=== PATIENT | female | born 1985 | race Caucasian/White ===

== ENCOUNTER 2020-02-22 21:17 | Emergency (ER) | payer BC ==
[~2020-02-22] VITALS: Ht 162.6 cm; Wt 59.0 kg
[2020-02-22] MEDS ORDERED: DEXAMETHASONE SOD PHOSPHATE 10 MG/ML VIAL ONE (21:57)
[2020-02-22] MEDS ORDERED: diphenhydrAMINE HCL 50 MG/ML VIAL ONE (21:57)
[2020-02-22] MEDS ORDERED: PROCHLORPERAZINE EDISYLATE 10 MG/2 ML VIAL ONE (21:57)
[2020-02-22] MEDS ORDERED: DEXAMETHASONE SOD PHOSPHATE 10 MG/ML VIAL IV ONE (22:00)
[2020-02-22] MEDS ORDERED: PROCHLORPERAZINE EDISYLATE 10 MG/2 ML VIAL IVP ONE (22:00)
[2020-02-22] MEDS ORDERED: diphenhydrAMINE HCL 50 MG/ML VIAL IV ONE ×2 (22:00)
[2020-02-22] MEDS ORDERED: IV NS 0.9% 1,000 ML BAG IV ONE (22:00)
[2020-02-22] MEDS ORDERED: KETOROLAC TROMETHAMINE INJ 30 MG/ML VIAL ONE (22:10)
--- NOTE | 2020-02-22 22:22 | NUR ---
PT MEDICATED ORDERED
[2020-02-22] MEDS ORDERED: KETOROLAC TROMETHAMINE INJ 30 MG/ML VIAL IV ONE (22:30)
[2020-02-22 22:50] VITALS: BP 120/73
--- NOTE | 2020-02-22 23:09 | NUR ---
Patient discharged to home in stable condition. Written and verbal after care instructions given. Patient verbalizes understanding of instruction.pt. ambulatory with a steady gait
== END 2020-02-22 23:10 | disposition home or self-care (01) ==
LOC: ER 21:26
DX: R51.9 Headache, unspecified (principal); R11.0 Nausea; R00.0 Tachycardia, unspecified; Z20.828 Contact with and (suspected) exposure to other viral communicable diseases
CPT/HCPCS: 96361; 96374; 96375; 99284; C9803; J0780; J1100; J1200; J1885; J7030; U0003

== ENCOUNTER 2021-07-20 14:13 | Emergency (ER) | payer BC, OTHER ==
[~2021-07-20] VITALS: Ht 162.6 cm; Wt 59.9 kg
--- NOTE | 2021-07-20 14:20 | NUR ---
BIBS C/O CHEST PRESSURE, PALPIATION, HEADACHE SINCE WEDNESDAY. THE CHEST PRESSURE AND HEADACHE COMES AN GOES AND SOMETIMES LEFT AND RIGHT ARM TINGLES. 4/10 ON PAIN SCALE. PT HAS NO CARDIAC MEDICAL HISTORY. PT ATTACHED TO MONITOR. WARM BLANKET PROVIDED FOR [facility]. WILL CONTINUE TO MONITOR.
--- NOTE | 2021-07-20 14:25 | NUR ---
IV ESTABLISHED R AC 20G. LABS DRAWN AND SENT. CONVERTED TO SALINE LOCK.
[2021-07-20 15:02] LABS: BASOPHILS % (AUTO) 0.6 % (0.0-2.0); EOSINOPHILS % (AUTO) 0.4 % (0.0-6.0); HEMATOCRIT 42 % (33-45); HEMOGLOBIN 14.4 g/dL (11.5-14.8); LYMPHOCYTES # (AUTO) 1.4 K/uL (0.8-4.8); MEAN CORPUSCULAR HGB CONC 34 g/dl (31.0-36.0); MEAN CORPUSCULAR VOLUME 98 fL (82-100); MONOCYTES # (AUTO) 0.4 K/uL (0.1-1.30); MONOCYTES % (AUTO) 8.4 % (2.0-12.0); NEUTROPHILS # (AUTO) 3.2 K/uL (1.8-8.9); NEUTROPHILS % (AUTO) 62.6 % (43.0-81.0); PLATELET COUNT (AUTO) 198 K/uL (150-450); RED BLOOD CELL COUNT(AUTO) 4.28 MIL/uL (4.0-5.2); WHITE BLOOD COUNT (AUTO) 5.1 K/uL (4.3-11.0)
[2021-07-20 15:22] LABS: CALCIUM, SERUM 9.5 mg/dL (8.5-10.1); CARBON DIOXIDE 24 mmol/L (21-32); CHLORIDE 103 mmol/L (98-107); GLUCOSE 134 mg/dL (74-106); POTASSIUM 3.1 mmol/L (3.5-5.1); SODIUM SERUM 135 mmol/L (136-145); UREA NITROGEN, BLOOD 15 mg/dL (7-18)
[2021-07-20] MEDS ORDERED: POTASSIUM CHLORIDE 20 MEQ TAB.PRT.SR PO ONE (15:58)
[2021-07-20] MEDS: POTASSIUM CHLORIDE 20 MEQ TAB.PRT.SR PO ONE (16:02)
--- NOTE | 2021-07-20 16:42 | NUR ---
IV removed. Catheter intact and site benign. Pressure and 4x4 applied to site. No bleeding noted.Patient discharged to home in stable condition. Written and verbal after care instructions given. Patient verbalizes understanding of instruction.
[2021-07-20 16:43] VITALS: BP 124/71
== END 2021-07-20 16:44 | disposition home or self-care (01) ==
LOC: ER 14:18
DX: R07.89 Other chest pain (principal); F17.200 Nicotine dependence, unspecified, uncomplicated; F41.9 Anxiety disorder, unspecified
CPT/HCPCS: 36415; 80048-TC; 83735-TC; 84484-TC; 85025-TC; 85378-TC